=== PATIENT | female | born 1965 | race Caucasian/White ===

== ENCOUNTER → 2017-05-08 | Day surgery (SDC) | payer BC ==
[~2017-05-08] MED LIST: HYDROCORTISONE SOD SUCCINATE 100 MG VIAL ONE; KETOROLAC TROMETHAMINE 30 MG/ML (IVP) VIAL IV PUSH ONE; MEPERIDINE HCL 25 MG/ML VIAL ONE; MIDAZOLAM HCL 2 MG/2 ML VIAL ONE; ONDANSETRON HCL 4 MG/2 ML VIAL IV PUSH ONE; PROPOFOL 200 MG/20 ML AMP IV ONE; ceFAZolin 2 GM PREMIX 50 ML ONE
--- NOTE | 2017-05-08 21:49 | MP ---
cc: MARY HAUSER M.D.,VICKI Lepe MD DATE OF SURGERY 05/08/2017 PREOPERATIVE DIAGNOSIS Perimenopausal menorrhagia PREOPERATIVE DIAGNOSIS: Examination under anesthesia, diagnostic hysteroscopy, dilatation curettage, fractional D&C, endometrial ablation with Novasure. POSTOPERATIVE DIAGNOSIS Perimenopausal menorrhagia SURGEON Dominik Watkins MD ANESTHESIA General LMA ESTIMATED BLOOD LOSS Minimal, less than 50 mL. DRAINS None. OPERATIVE FINDINGS The patient had anteverted uterus. Endometrial cavity measured 5.5 on the cavity length with 2.5 in the width. There was no focal abnormality. Cavity was symmetrical. Generator from the Novasure measured 79 collier. INDICATIONS FOR PROCEDURE Patient with chronic abnormal heavy bleeding. Ultrasound revealed a normal uterine size. No focal abnormality. Normal ovaries. Pap smear was normal. Given the options, the patient elected for diagnostic hysteroscopy, sampling of the endometrium and Novasure endometrial ablation. PROCEDURE IN DETAIL The patient received Ancef 2 grams prophylactically. She underwent general anesthesia with LMA placement. She was carefully positioned in dorsolithotomy position using candy-cane stirrups. She had sequentials placed on lower extremities for VTE prophylaxis. She was prepped and draped. Time-out was conducted, agreed by all present in the room. The initiation of the exam revealed an anteverted uterus, midline, normal size and shape. Cervix is visualized by use of a bivalve retractor. A single-tooth tenaculum was placed anteriorly on the cervix. Curettage of the endocervix was accomplished with the Catalan curette and labeled ECC. The cavity was then measured with a uterine sound to about 8.5 cm. The cervix was then dilated to accommodate a 5 mm rigid hysteroscope using normal saline as a distension media. The cavity evaluation was described above. This was followed by curettage of the endometrium and then use of the Novasure device which was accomplished without difficulty. Removal of the Novasure after complete electro-desiccation of the cavity was complete. Re-insertion of the hysteroscope revealed blanching and cauterization of the cavity without difficulty. No perforation. No active bleeding. At the completion of the case, the patient was stable. Full and final count was correct and she was taken to recovery room on room air. MD EDWARD Johns/ /7:55 AM /9:34 PM
== END | disposition home or self-care (01) ==
LOC: ESDC 06:51
PROVIDERS: ATTEND Obstetrics & Gynecology
DX: N92.4 Excessive bleeding in the premenopausal period (principal)
CPT/HCPCS: 00952; 58563; 88305; J0690; J1720; J1885; J2175; J2250; J2405; J3010